=== PATIENT | female | born 1945 | race Hispanic/Latino ===

== ENCOUNTER → 2019-02-28 | Day surgery (SDC) | payer MEDICARE ==
[2019-02-22 10:25] LABS: BASOPHILS % 0.6 % (0.0-1.0); EOSINOPHILS # (AUTO) 0.1 (0.0-0.4); EOSINOPHILS % 1.7 % (0.0-6.0); HEMATOCRIT 38.1 % (34.2-44.1); HEMOGLOBIN 12.5 g/dL (12.0-16.0); LYMPHOCYTES # (AUTO) 1.5 (1.0-3.2); MEAN CORPUSCULAR HGB CONC 32.8 g/dL (31-35); MEAN CORPUSCULAR VOLUME 94.5 fL (81-99); MONOCYTES # (AUTO) 0.6 (0.2-0.8); MONOCYTES % 8.9 % (4.4-11.3); NEUTROPHILS # (AUTO) 4.8 (2.1-6.9); NEUTROPHILS % 67.5 % (38.7-80.0); PLATELET COUNT 252 x10e3/uL (140-360); RED BLOOD COUNT 4.03 x10e6/uL (3.6-5.1); RED CELL DISTRIBUTION WIDTH 12.6 % (11.7-14.4)
[~2019-02-28] MED LIST: CALCIUM600 MG PO; DILTIAZEM 24HR300 M2 PO; FENTANYL CITRATE/PF 100MCG/2 ML INJ ONE; HYOSCYAMINE SULFATE 0.5 MG/ML INJ ONE; LIDOCAINE HCL 2% LOCAL INJ 5 ML SDV VIAL INJ ONE; LISINOPRIL20 MG PO; LOSARTAN-HCTZ1 EAC2 PO; LOVASTATIN10 MG PO; PROPOFOL IV EMULSION 10 MG/ML 50 ML VIAL ONE; VITAMIN D PO
[2019-02-28 10:05] VITALS: BP 114/77
--- NOTE | 2019-02-28 16:30 | Operative Report ---
DATE OF PROCEDURE: 02/28/2019 SURGEON: Brannon Perdomo MD PROCEDURE: Esophagogastroduodenoscopy with biopsies and colonoscopy with polypectomy and biopsies. INDICATIONS FOR EGD: History of melena. INDICATIONS FOR COLONOSCOPY: Surveillance colonoscopy, personal history of colon polyps, intermittent loose stools. MEDICATIONS: The patient was done under MAC. Please see anesthesiologist's note. PROCEDURE IN DETAIL: With the patient in left lateral decubitus position, flexible fiberoptic Olympus gastroscope was introduced into the esophagus under direct visualization without any difficulty. There was some patchy erythema noted in distal esophagus. The scope was then advanced with ease into the stomach. Mucosa overlying the antrum and the body revealed some patchy erythema and low-grade to moderate edema. Biopsies were obtained and sent to stain for H. pylori. A submucosal nodule was noted in the upper body along the lesser curvature and that was biopsied. The pylorus was intubated with ease and the scope was advanced all the way to the second portion of the duodenum. Biopsies were obtained from the proximal second portion and duodenal bulb to rule out sprue. The scope was then withdrawn back into the stomach and retroflexed and mucosa overlying the fundus and the cardia appeared to be within normal limits. The scope was then straightened out. The stomach was decompressed. The scope was subsequently withdrawn. The patient tolerated procedure well. IMPRESSION: 1. Distal esophagitis, mild. 2. Gastritis, biopsied, biopsies sent to stain for H. pylori. 3. Submucosal nodule, upper body, lesser curvature, biopsied. 4. Rule out sprue. PLAN: Follow up histology. Initiate Protonix 40 mg one p.o. q.a.m. a.c. The patient was then turned around. After adequate lubrication of the anal canal, flexible fiberoptic Olympus colonoscope was inserted into the rectum with ease and advanced all the way to the cecum. A minute polyp was noted in the cecum that was removed per snare electrocautery and polypectomy site was hemoclipped. The ileocecal valve was intubated and the scope was advanced into the terminal ileum. Biopsies were obtained. The scope was then withdrawn back into the colon. It was then withdrawn slowly and a minute polyp was hot biopsied from the ascending colon. The transverse appeared to be within normal limits. There were some mild patchy inflammatory changes noted in the descending and the sigmoid colon and random biopsies were obtained. The scope was then retroflexed into the distal rectum and small internal hemorrhoids were noted, none of which was actively bleeding. The scope was then straightened out, it was subsequently withdrawn. The patient tolerated procedure well. IMPRESSION: 1. Cecal polyp, snared and site hemoclipped. 2. Ascending colon polyp, hot biopsied. 3. Mild patchy left-sided colitis. 4. Internal hemorrhoids, none actively bleeding. PLAN: Followup histology. Initiate Bentyl 20 mg one p.o. t.i.d. VSL #3 one p.o. daily. The patient might benefit from a followup colonoscopy in 3 to 5 years. Brannon Perdomo MD [facility] [place] /[id number] cc: Gonzalo Mora MD
== END | disposition home or self-care (01) ==
LOC: OR 06:02
PROVIDERS: ATTEND Internal Medicine Gastroenterology
DX: Z12.11 Encounter for screening for malignant neoplasm of colon (principal); Z86.010 Personal history of colon polyps; K92.1 Melena; K59.00 Constipation, unspecified; R10.9 Unspecified abdominal pain; G47.33 Obstructive sleep apnea (adult) (pediatric); I10 Essential (primary) hypertension; K58.9 Irritable bowel syndrome, unspecified; K20.9 Esophagitis, unspecified; K29.70 Gastritis, unspecified, without bleeding; K31.9 Disease of stomach and duodenum, unspecified; K63.5 Polyp of colon; K64.8 Other hemorrhoids; Z01.810 Encounter for preprocedural cardiovascular examination; Z01.812 Encounter for preprocedural laboratory examination; D12.0 Benign neoplasm of cecum
CPT/HCPCS: 36415; 43239; 45384; 45385; 85025; 88305; 88312; 93005; J1980; J2001; J2704; 45378; 45380

== ENCOUNTER → 2019-06-17 | Outpatient (CLI) | payer MEDICARE ==
[~2019-06-17] MED LIST changes: -FENTANYL CITRATE/PF 100MCG/2 ML INJ ONE; -HYOSCYAMINE SULFATE 0.5 MG/ML INJ ONE; -LIDOCAINE HCL 2% LOCAL INJ 5 ML SDV VIAL INJ ONE; -PROPOFOL IV EMULSION 10 MG/ML 50 ML VIAL ONE
== END ==
LOC: RAD 11:38
PROVIDERS: ATTEND Family Medicine
DX: R60.0 Localized edema (principal)
CPT/HCPCS: 93971

== ENCOUNTER 2020-11-08 09:21 | Inpatient (IN) | payer MEDICARE, OTHER ==
[~2020-11-08] VITALS: Ht 157.5 cm; Wt 80.1 kg
[2020-11-08] VITALS (7 sets, daily range): BP systolic 100–152; BP diastolic 46–71
[2020-11-08 10:10] LABS: HEMATOCRIT 40.5 % (34.2-44.1); HEMOGLOBIN 13.4 g/dL (12.0-16.0); MEAN CORPUSCULAR HEMOGLOBIN 30.7 pg (28-32); MEAN CORPUSCULAR HGB CONC 33.1 g/dL (31-35); MEAN CORPUSCULAR VOLUME 92.7 fL (81-99); PLATELET COUNT 247 x10e3/uL (140-360); RED BLOOD COUNT 4.37 x10e6/uL (3.6-5.1)
[2020-11-08 10:39] LABS: CLARITY,URINE SL CLOUDY (CLEAR); COLOR,URINE YELLOW (YELLOW); KETONES,URINE NEGATIVE (NEGATIVE); LEUKOCYTE ESTERASE ,URINE SMALL (NEGATIVE); NITRITE,URINE NEGATIVE (NEGATIVE); PROTEIN,URINE DIPSTICK 1+ (NEGATIVE); URINE UROBILINOGEN 1 mg/dL (0.2 - 1)
[2020-11-08 10:47] LABS: ALANINE AMINOTRANSFERASE 18 IU/L (0-55); ALBUMIN 2.8 g/dL (3.5-5.0); ALBUMIN/GLOBULIN RATIO 0.7 (0.8-2.0); ALKALINE PHOSPHATASE 70 IU/L (40-150); ANION GAP 13.6 mmol/L (8-16); BLOOD UREA NITROGEN 17 mg/dL (7-26); BUN/CREATININE RATIO 25 (6-25); CALCIUM 8.5 mg/dL (8.4-10.2); CARBON DIOXIDE 26 mmol/L (22-29); CHLORIDE 103 mmol/L (98-107); CREATINE KINASE 24 IU/L (29-168); CREATININE, SERUM 0.69 mg/dL (0.57-1.11); EST GLOMERULAR FILTRATION RATE > 60 ML/MIN (60-); GLUCOSE 111 mg/dL (74-118); POTASSIUM 3.6 mmol/L (3.5-5.1); SODIUM 139 mmol/L (136-145)
[2020-11-08 10:50] LABS: BACTERIA,URINE FEW /HPF; EPITHELIAL CELLS,URINE FEW /LPF; RBC,URINE 0-5 /HPF (0-5)
[2020-11-08] MEDS ORDERED: AZITHROMYCIN 500MG/NS 250 ML 250 ML IV STA (11:22)
[2020-11-08] MEDS ORDERED: CEFTRIAXONE SOD 1 GM/NS 50 ML 50 ML IV ONE (11:30)
[2020-11-08] MEDS ORDERED: LOSARTAN POTASS25 MG PO (12:19)
[2020-11-08] MEDS ORDERED: GABAPENTIN100 MG PO (12:20)
[2020-11-08] MEDS ORDERED: FISH OIL 1,0001 EAC2 PO (12:21)
[2020-11-08 12:38] LABS: LYMPHOCYTES % (MANUAL) 21 % (19-48); MONOCYTES % (MANUAL) 6 % (3.4-9.0); NEUTROPHILS % (MANUAL) 73 % (40-74)
[2020-11-08 12:39] LABS: PLATELET ESTIMATE ADEQUATE; POLYCHROMASIA FEW; RBC MORPHOLOGY COMMENT NORMAL
[2020-11-08] MEDS ORDERED: SODIUM CHLORIDE 0.9% 250ML 250 ML ONE (12:52)
[2020-11-08] MEDS: ACETAMINOPHEN 325 MG TAB PO PRN (13:13)
[2020-11-08] MEDS ORDERED: ONDANSETRON HCL INJ 2MG/ML 2ML 2 MG/ML VIAL IV PRN (13:15)
[2020-11-08] MEDS: PIPER-TAZ 3.375 GM 50 ML IV SCH (16:30)
[2020-11-08] MEDS ORDERED: DEXAMETHASONE SOD PHOS INJ 4 MG/ML VIAL IV SCH (17:00)
[2020-11-08 18:37] LABS: CREATINE KINASE 31 IU/L (29-168)
[2020-11-08] MEDS: ENOXAPARIN SOD INJ 40 MG/0.4 ML SYR SC SCH (21:35)
[2020-11-09] MEDS: PIPER-TAZ 3.375 GM 50 ML IV SCH ×4 (01:15→17:26)
[2020-11-09 02:10] LABS: CREATINE KINASE MB 0.8 ng/mL (0-5.0)
[2020-11-09 04:54] VITALS: BP 110/46
[2020-11-09 06:27] LABS: BASOPHILS % 0.2 % (0.0-1.0); HEMATOCRIT 39.4 % (34.2-44.1); HEMOGLOBIN 13.1 g/dL (12.0-16.0); LYMPHOCYTES # (AUTO) 0.7 (1.0-3.2); LYMPHOCYTES % 4.3 % (18.0-39.1); MEAN CORPUSCULAR HEMOGLOBIN 31.3 pg (28-32); MEAN CORPUSCULAR HGB CONC 33.2 g/dL (31-35); MEAN CORPUSCULAR VOLUME 94.3 fL (81-99); MONOCYTES # (AUTO) 0.6 (0.2-0.8); MONOCYTES % 3.5 % (4.4-11.3); NEUTROPHILS # (AUTO) 14.2 (2.1-6.9); PLATELET COUNT 231 x10e3/uL (140-360); RED BLOOD COUNT 4.18 x10e6/uL (3.6-5.1); RED CELL DISTRIBUTION WIDTH 13.1 % (11.7-14.4)
[2020-11-09] MEDS: ACETAMINOPHEN 325 MG TAB PO PRN ×2 (06:27→16:45)
[2020-11-09 06:59] LABS: ALANINE AMINOTRANSFERASE 18 IU/L (0-55); ALBUMIN 2.4 g/dL (3.5-5.0); ALBUMIN/GLOBULIN RATIO 0.6 (0.8-2.0); ALKALINE PHOSPHATASE 69 IU/L (40-150); ANION GAP 14.2 mmol/L (8-16); BLOOD UREA NITROGEN 16 mg/dL (7-26); BUN/CREATININE RATIO 24 (6-25); CALCIUM 8.2 mg/dL (8.4-10.2); CARBON DIOXIDE 25 mmol/L (22-29); CHLORIDE 104 mmol/L (98-107); CREATININE, SERUM 0.67 mg/dL (0.57-1.11); EST GLOMERULAR FILTRATION RATE > 60 ML/MIN (60-); GLUCOSE 110 mg/dL (74-118); POTASSIUM 4.2 mmol/L (3.5-5.1); SODIUM 139 mmol/L (136-145)
[2020-11-09 07:56] LABS: LYMPHOCYTES % (MANUAL) 2 % (19-48); MONOCYTES % (MANUAL) 1 % (3.4-9.0); NEUTROPHILS % (MANUAL) 96 % (40-74); PLATELET ESTIMATE ADEQUATE; PLATELET MORPHOLOGY COMMENT NORMAL; RBC MORPHOLOGY COMMENT NORMAL
[2020-11-09 09:00] VITALS: BP 121/58
[2020-11-09] MEDS: ENOXAPARIN SOD INJ 40 MG/0.4 ML SYR SC SCH ×2 (09:20→21:07)
[2020-11-09] MEDS: DEXAMETHASONE SOD PHOS INJ 4 MG/ML VIAL IV SCH (09:20)
[2020-11-09] MEDS ORDERED: SODIUM CHLORIDE 0.9% 250ML 250 ML ONE (11:39)
[2020-11-09] MEDS: AZITHROMYCIN 250 MG TAB PO SCH (11:43)
[2020-11-09 20:00] VITALS: BP 129/67
[2020-11-09 21:28] VITALS: BP 129/67
[2020-11-09 23:30] VITALS: BP 131/59
[2020-11-10] VITALS (9 sets, daily range): BP systolic 120–141; BP diastolic 58–80
[2020-11-10] MEDS: ACETAMINOPHEN 325 MG TAB PO PRN ×2 (02:11→10:20)
[2020-11-10] MEDS: PIPER-TAZ 3.375 GM 50 ML IV SCH ×5 (05:03→23:44)
[2020-11-10] MEDS: DEXAMETHASONE SOD PHOS INJ 4 MG/ML VIAL IV SCH (08:28)
[2020-11-10] MEDS: AZITHROMYCIN 250 MG TAB PO SCH (08:28)
[2020-11-10] MEDS: ENOXAPARIN SOD INJ 40 MG/0.4 ML SYR SC SCH ×2 (08:28→20:00)
[2020-11-11] VITALS (9 sets, daily range): BP systolic 113–135; BP diastolic 53–67
[2020-11-11] MEDS: PIPER-TAZ 3.375 GM 50 ML IV SCH ×3 (05:06→17:10)
[2020-11-11 06:28] LABS: BASOPHILS % 0.3 % (0.0-1.0); HEMATOCRIT 38.5 % (34.2-44.1); HEMOGLOBIN 12.6 g/dL (12.0-16.0); LYMPHOCYTES # (AUTO) 1.2 (1.0-3.2); LYMPHOCYTES % 11.5 % (18.0-39.1); MEAN CORPUSCULAR HEMOGLOBIN 30.4 pg (28-32); MEAN CORPUSCULAR HGB CONC 32.7 g/dL (31-35); MEAN CORPUSCULAR VOLUME 92.8 fL (81-99); MONOCYTES # (AUTO) 0.8 (0.2-0.8); MONOCYTES % 7.5 % (4.4-11.3); NEUTROPHILS # (AUTO) 8.4 (2.1-6.9); NEUTROPHILS % 78.4 % (38.7-80.0); PLATELET COUNT 319 x10e3/uL (140-360); RED BLOOD COUNT 4.15 x10e6/uL (3.6-5.1); RED CELL DISTRIBUTION WIDTH 13.2 % (11.7-14.4)
[2020-11-11 07:07] LABS: ANION GAP 14.1 mmol/L (8-16); BLOOD UREA NITROGEN 23 mg/dL (7-26); BUN/CREATININE RATIO 33 (6-25); CALCIUM 8.6 mg/dL (8.4-10.2); CARBON DIOXIDE 24 mmol/L (22-29); CHLORIDE 107 mmol/L (98-107); EST GLOMERULAR FILTRATION RATE > 60 ML/MIN (60-); GLUCOSE 104 mg/dL (74-118); POTASSIUM 4.1 mmol/L (3.5-5.1); SODIUM 141 mmol/L (136-145)
[2020-11-11] MEDS: AZITHROMYCIN 250 MG TAB PO SCH (08:42)
[2020-11-11] MEDS: DEXAMETHASONE SOD PHOS INJ 4 MG/ML VIAL IV SCH (08:42)
[2020-11-11] MEDS: ENOXAPARIN SOD INJ 40 MG/0.4 ML SYR SC SCH ×2 (08:42→20:54)
[2020-11-11] MEDS: ALBUTEROL SULFATE HFA 8GM INHALATION AEROSOL INH SCH (13:00)
[2020-11-12] VITALS (8 sets, daily range): BP systolic 117–142; BP diastolic 57–74
[2020-11-12] MEDS: PIPER-TAZ 3.375 GM 50 ML IV SCH ×5 (05:19→23:55)
[2020-11-12] MEDS: DEXAMETHASONE SOD PHOS INJ 4 MG/ML VIAL IV SCH (08:18)
[2020-11-12] MEDS: ENOXAPARIN SOD INJ 40 MG/0.4 ML SYR SC SCH ×2 (08:18→20:05)
[2020-11-12] MEDS: AZITHROMYCIN 250 MG TAB PO SCH (08:18)
[2020-11-13] MEDS: CEPACOL SORE THROAT LOZENGES PO PRN (01:19)
[2020-11-13 04:00] VITALS: BP 129/65
[2020-11-13 05:31] LABS: BASOPHILS % 0.2 % (0.0-1.0); EOSINOPHILS # (AUTO) 0.1 (0.0-0.4); EOSINOPHILS % 0.4 % (0.0-6.0); HEMATOCRIT 38.6 % (34.2-44.1); HEMOGLOBIN 12.5 g/dL (12.0-16.0); LYMPHOCYTES # (AUTO) 1.9 (1.0-3.2); LYMPHOCYTES % 13.8 % (18.0-39.1); MEAN CORPUSCULAR HEMOGLOBIN 30.6 pg (28-32); MEAN CORPUSCULAR HGB CONC 32.4 g/dL (31-35); MEAN CORPUSCULAR VOLUME 94.6 fL (81-99); MONOCYTES # (AUTO) 0.8 (0.2-0.8); MONOCYTES % 5.9 % (4.4-11.3); NEUTROPHILS # (AUTO) 10.2 (2.1-6.9); NEUTROPHILS % 76.1 % (38.7-80.0); PLATELET COUNT 273 x10e3/uL (140-360); RED BLOOD COUNT 4.08 x10e6/uL (3.6-5.1); RED CELL DISTRIBUTION WIDTH 12.6 % (11.7-14.4)
[2020-11-13] MEDS: ACETAMINOPHEN 325 MG TAB PO PRN (05:48)
[2020-11-13 05:58] LABS: ALANINE AMINOTRANSFERASE 19 IU/L (0-55); ALBUMIN 2.2 g/dL (3.5-5.0); ALBUMIN/GLOBULIN RATIO 0.6 (0.8-2.0); ALKALINE PHOSPHATASE 52 IU/L (40-150); ANION GAP 11.8 mmol/L (8-16); BLOOD UREA NITROGEN 18 mg/dL (7-26); BUN/CREATININE RATIO 28 (6-25); CALCIUM 8.3 mg/dL (8.4-10.2); CARBON DIOXIDE 26 mmol/L (22-29); CHLORIDE 105 mmol/L (98-107); CREATININE, SERUM 0.64 mg/dL (0.57-1.11); EST GLOMERULAR FILTRATION RATE > 60 ML/MIN (60-); GLUCOSE 92 mg/dL (74-118); POTASSIUM 3.8 mmol/L (3.5-5.1); SODIUM 139 mmol/L (136-145)
[2020-11-13] MEDS: PIPER-TAZ 3.375 GM 50 ML IV SCH ×2 (06:16→11:13)
[2020-11-13] MEDS: ALBUTEROL SULFATE HFA 8GM INHALATION AEROSOL INH SCH ×3 (07:00→19:53)
[2020-11-13] MEDS: ENOXAPARIN SOD INJ 40 MG/0.4 ML SYR SC SCH ×2 (08:12→19:52)
[2020-11-13] MEDS: AZITHROMYCIN 250 MG TAB PO SCH (08:12)
[2020-11-13] MEDS: DEXAMETHASONE SOD PHOS INJ 4 MG/ML VIAL IV SCH (08:12)
[2020-11-13 08:48] VITALS: BP 120/54
[2020-11-13 09:33] VITALS: BP 120/54
[2020-11-13 12:43] VITALS: BP 116/65
[2020-11-13 17:02] VITALS: BP 125/63
[2020-11-13 20:00] VITALS: BP 116/57
[2020-11-14] VITALS (8 sets, daily range): BP systolic 103–136; BP diastolic 42–67
[2020-11-14] MEDS: ALBUTEROL SULFATE HFA 8GM INHALATION AEROSOL INH SCH ×4 (01:02→17:39)
[2020-11-14] MEDS ORDERED: SODIUM CHLORIDE 0.9% 250ML 250 ML ONE (01:12)
[2020-11-14] MEDS: CEPACOL SORE THROAT LOZENGES PO PRN (09:25)
[2020-11-14] MEDS: DEXAMETHASONE SOD PHOS INJ 4 MG/ML VIAL IV SCH (09:25)
[2020-11-14] MEDS: ENOXAPARIN SOD INJ 40 MG/0.4 ML SYR SC SCH ×2 (09:37→20:41)
[2020-11-14] MEDS: ACETAMINOPHEN 325 MG TAB PO PRN (09:37)
[2020-11-15] VITALS (8 sets, daily range): BP systolic 101–127; BP diastolic 50–87
[2020-11-15] MEDS: ALBUTEROL SULFATE HFA 8GM INHALATION AEROSOL INH SCH ×4 (00:50→19:00)
[2020-11-15] MEDS: ENOXAPARIN SOD INJ 40 MG/0.4 ML SYR SC SCH (09:05)
[2020-11-15] MEDS: DEXAMETHASONE SOD PHOS INJ 4 MG/ML VIAL IV SCH (09:05)
[2020-11-15] MEDS: ACETAMINOPHEN 325 MG TAB PO PRN (23:43)
[2020-11-16] VITALS (8 sets, daily range): BP systolic 116–123; BP diastolic 51–65
[2020-11-16] MEDS: ALBUTEROL SULFATE HFA 8GM INHALATION AEROSOL INH SCH ×4 (00:17→19:08)
[2020-11-16 04:48] LABS: BASOPHILS % 0.2 % (0.0-1.0); EOSINOPHILS # (AUTO) 0.3 (0.0-0.4); EOSINOPHILS % 2.3 % (0.0-6.0); HEMATOCRIT 33.6 % (34.2-44.1); HEMOGLOBIN 11.1 g/dL (12.0-16.0); LYMPHOCYTES # (AUTO) 1.5 (1.0-3.2); LYMPHOCYTES % 11.3 % (18.0-39.1); MEAN CORPUSCULAR HEMOGLOBIN 30.5 pg (28-32); MEAN CORPUSCULAR VOLUME 92.3 fL (81-99); MONOCYTES # (AUTO) 0.6 (0.2-0.8); MONOCYTES % 4.3 % (4.4-11.3); NEUTROPHILS # (AUTO) 10.3 (2.1-6.9); NEUTROPHILS % 79.7 % (38.7-80.0); PLATELET COUNT 255 x10e3/uL (140-360); RED BLOOD COUNT 3.64 x10e6/uL (3.6-5.1); RED CELL DISTRIBUTION WIDTH 12.7 % (11.7-14.4)
[2020-11-16 05:05] LABS: ANION GAP 11.7 mmol/L (8-16); BLOOD UREA NITROGEN 17 mg/dL (7-26); BUN/CREATININE RATIO 32 (6-25); CARBON DIOXIDE 24 mmol/L (22-29); CHLORIDE 107 mmol/L (98-107); CREATININE, SERUM 0.53 mg/dL (0.57-1.11); EST GLOMERULAR FILTRATION RATE > 60 ML/MIN (60-); GLUCOSE 89 mg/dL (74-118); POTASSIUM 3.7 mmol/L (3.5-5.1); SODIUM 139 mmol/L (136-145)
[2020-11-16] MEDS: DEXAMETHASONE SOD PHOS INJ 4 MG/ML VIAL IV SCH (08:37)
[2020-11-17] VITALS (8 sets, daily range): BP systolic 90–121; BP diastolic 50–73
[2020-11-17] MEDS: ALBUTEROL SULFATE HFA 8GM INHALATION AEROSOL INH SCH ×4 (00:44→19:37)
[2020-11-17] MEDS: DEXAMETHASONE SOD PHOS INJ 4 MG/ML VIAL IV SCH (11:55)
[2020-11-18] VITALS (8 sets, daily range): BP systolic 107–131; BP diastolic 51–65
[2020-11-18] MEDS: ALBUTEROL SULFATE HFA 8GM INHALATION AEROSOL INH SCH ×4 (01:00→20:07)
[2020-11-18] MEDS ORDERED: ENOXAPARIN SOD INJ 40 MG/0.4 ML SYR SC STA (10:44)
[2020-11-18] MEDS: ACETAMINOPHEN 325 MG TAB PO PRN (20:45)
[2020-11-19] VITALS (8 sets, daily range): BP systolic 90–116; BP diastolic 38–65
[2020-11-19] MEDS: ALBUTEROL SULFATE HFA 8GM INHALATION AEROSOL INH SCH ×4 (01:00→19:00)
[2020-11-19] MEDS: ACETAMINOPHEN 325 MG TAB PO PRN (16:19)
[2020-11-20] VITALS: BP 118/78
[2020-11-20] MEDS: ALBUTEROL SULFATE HFA 8GM INHALATION AEROSOL INH SCH ×3 (01:00→13:06)
[2020-11-20 04:49] LABS: BASOPHILS % 0.2 % (0.0-1.0); EOSINOPHILS # (AUTO) 0.3 (0.0-0.4); EOSINOPHILS % 2.9 % (0.0-6.0); HEMOGLOBIN 11.9 g/dL (12.0-16.0); LYMPHOCYTES # (AUTO) 1.1 (1.0-3.2); LYMPHOCYTES % 11.5 % (18.0-39.1); MEAN CORPUSCULAR HEMOGLOBIN 30.7 pg (28-32); MEAN CORPUSCULAR HGB CONC 32.2 g/dL (31-35); MEAN CORPUSCULAR VOLUME 95.4 fL (81-99); MONOCYTES # (AUTO) 0.6 (0.2-0.8); MONOCYTES % 6.2 % (4.4-11.3); NEUTROPHILS # (AUTO) 7.6 (2.1-6.9); NEUTROPHILS % 78.4 % (38.7-80.0); PLATELET COUNT 228 x10e3/uL (140-360); RED BLOOD COUNT 3.88 x10e6/uL (3.6-5.1); RED CELL DISTRIBUTION WIDTH 12.7 % (11.7-14.4)
[2020-11-20 05:06] LABS: ANION GAP 12.9 mmol/L (8-16); BLOOD UREA NITROGEN 14 mg/dL (7-26); BUN/CREATININE RATIO 25 (6-25); CALCIUM 8.3 mg/dL (8.4-10.2); CARBON DIOXIDE 24 mmol/L (22-29); CHLORIDE 103 mmol/L (98-107); CREATININE, SERUM 0.57 mg/dL (0.57-1.11); EST GLOMERULAR FILTRATION RATE > 60 ML/MIN (60-); GLUCOSE 95 mg/dL (74-118); POTASSIUM 3.9 mmol/L (3.5-5.1); SODIUM 136 mmol/L (136-145)
[2020-11-20 08:00] VITALS: BP 112/50
[2020-11-20 13:13] VITALS: BP 110/77
[2020-11-20 16:01] VITALS: BP 114/57
[2020-11-20] MEDS: ACETAMINOPHEN 325 MG TAB PO PRN (16:05)
== END 2020-11-20 17:09 | disposition home health service (06) | DRG 177 ==
LOC: ER 09:32 → ERHOLD 11:47 → MED/SURG2 12:05 → IMCU 11-09 06:41
PROVIDERS: ADMIT Family Medicine; ATTEND Family Medicine
DX: U07.1 COVID-19 (principal); J12.82 Pneumonia due to coronavirus disease 2019; J96.01 Acute respiratory failure with hypoxia; Z88.1 Allergy status to other antibiotic agents; Z88.8 Allergy status to other drugs, medicaments and biological substances; I10 Essential (primary) hypertension; E66.9 Obesity, unspecified; Z68.32 Body mass index [BMI] 32.0-32.9, adult
CPT/HCPCS: 36415; 71045; 80048; 80053; 81001; 82550; 82553; 84484; 85007; 85025; 85027; 87086; 96361; 97139; 99251; 99284; J0456; J0696; J1100; J1650; J2405; J2543; J7050; U0002

== ENCOUNTER 2020-11-24 19:03 | Inpatient (IN) | payer MEDICARE ==
[~2020-11-24] VITALS: Ht 157.5 cm; Wt 79.8 kg
[~2020-11-24 19:03] MED LIST changes: +FISH OIL 1,0001 EAC2 PO; +GABAPENTIN100 MG PO; +LOSARTAN POTASS25 MG PO
[2020-11-24 20:11] LABS: BASOPHILS % 0.2 % (0.0-1.0); EOSINOPHILS # (AUTO) 0.3 (0.0-0.4); EOSINOPHILS % 2.2 % (0.0-6.0); HEMATOCRIT 36.8 % (34.2-44.1); HEMOGLOBIN 11.9 g/dL (12.0-16.0); LYMPHOCYTES # (AUTO) 1.4 (1.0-3.2); LYMPHOCYTES % 11.6 % (18.0-39.1); MEAN CORPUSCULAR HEMOGLOBIN 30.9 pg (28-32); MEAN CORPUSCULAR HGB CONC 32.3 g/dL (31-35); MEAN CORPUSCULAR VOLUME 95.6 fL (81-99); MONOCYTES # (AUTO) 0.9 (0.2-0.8); MONOCYTES % 7.8 % (4.4-11.3); NEUTROPHILS # (AUTO) 9.3 (2.1-6.9); NEUTROPHILS % 77.6 % (38.7-80.0); PLATELET COUNT 240 x10e3/uL (140-360); RED BLOOD COUNT 3.85 x10e6/uL (3.6-5.1); RED CELL DISTRIBUTION WIDTH 13.2 % (11.7-14.4)
[2020-11-24 20:22] LABS: INR 1.02
[2020-11-24 20:23] LABS: PARTIAL THROMBOPLASTIN TIME 42.8 seconds (23.8-35.5)
[2020-11-24 20:32] LABS: ALANINE AMINOTRANSFERASE 21 IU/L (0-55); ALBUMIN 2.7 g/dL (3.5-5.0); ALBUMIN/GLOBULIN RATIO 0.6 (0.8-2.0); ALKALINE PHOSPHATASE 80 IU/L (40-150); BLOOD UREA NITROGEN 14 mg/dL (7-26); BUN/CREATININE RATIO 21 (6-25); CARBON DIOXIDE 24 mmol/L (22-29); CHLORIDE 106 mmol/L (98-107); CREATINE KINASE 20 IU/L (29-168); CREATININE, SERUM 0.66 mg/dL (0.57-1.11); EST GLOMERULAR FILTRATION RATE > 60 ML/MIN (60-); GLUCOSE 114 mg/dL (74-118); SODIUM 142 mmol/L (136-145)
[2020-11-24 21:35] VITALS: BP 113/56
[2020-11-24 21:40] VITALS: BP 113/56
[2020-11-25] VITALS (8 sets, daily range): BP systolic 91–116; BP diastolic 40–65
[2020-11-25] MEDS ORDERED: CEFTRIAXONE SOD 1 GM/NS 50 ML 50 ML IV SCH (04:30)
[2020-11-25] MEDS ORDERED: AZITHROMYCIN 500MG/NS 250 ML 250 ML IV SCH (04:30)
[2020-11-25] MEDS ORDERED: SODIUM CHLORIDE 0.9% 250ML 250 ML ONE (05:20)
[2020-11-25] MEDS: ACETAMINOPHEN 325 MG TAB PO PRN (06:14)
[2020-11-25 06:16] LABS: BASOPHILS % 0.3 % (0.0-1.0); EOSINOPHILS # (AUTO) 0.2 (0.0-0.4); HEMATOCRIT 33.2 % (34.2-44.1); HEMOGLOBIN 11.1 g/dL (12.0-16.0); LYMPHOCYTES % 9.1 % (18.0-39.1); MEAN CORPUSCULAR HEMOGLOBIN 31.8 pg (28-32); MEAN CORPUSCULAR HGB CONC 33.4 g/dL (31-35); MEAN CORPUSCULAR VOLUME 95.1 fL (81-99); MONOCYTES % 8.3 % (4.4-11.3); NEUTROPHILS # (AUTO) 9.1 (2.1-6.9); NEUTROPHILS % 79.8 % (38.7-80.0); PLATELET COUNT 214 x10e3/uL (140-360); RED BLOOD COUNT 3.49 x10e6/uL (3.6-5.1); RED CELL DISTRIBUTION WIDTH 13.3 % (11.7-14.4)
[2020-11-25 06:48] LABS: CREATINE KINASE MB 0.7 ng/mL (0-5.0)
[2020-11-25 07:20] LABS: ALANINE AMINOTRANSFERASE 18 IU/L (0-55); ALBUMIN 2.4 g/dL (3.5-5.0); ALBUMIN/GLOBULIN RATIO 0.6 (0.8-2.0); ALKALINE PHOSPHATASE 67 IU/L (40-150); ANION GAP 13.2 mmol/L (8-16); BLOOD UREA NITROGEN 11 mg/dL (7-26); BUN/CREATININE RATIO 19 (6-25); CALCIUM 8.6 mg/dL (8.4-10.2); CARBON DIOXIDE 23 mmol/L (22-29); CHLORIDE 105 mmol/L (98-107); CREATININE, SERUM 0.58 mg/dL (0.57-1.11); EST GLOMERULAR FILTRATION RATE > 60 ML/MIN (60-); GLUCOSE 107 mg/dL (74-118); POTASSIUM 4.2 mmol/L (3.5-5.1); SODIUM 137 mmol/L (136-145)
[2020-11-25] MEDS: DILTIAZEM HCL ER 120 MG CAP PO SCH (08:50)
[2020-11-25] MEDS: ENOXAPARIN INJ 80 MG/0.8 ML SYR SC SCH ×2 (08:51→20:29)
[2020-11-25] MEDS: LOSARTAN POTASSIUM 25 MG TAB PO SCH (08:51)
[2020-11-25] MEDS: GABAPENTIN 100 MG CAP PO SCH ×3 (08:51→20:29)
[2020-11-25] MEDS ORDERED: DEXAMETHASONE SOD PHOS 10 MG/1 ML VIAL IV SCH (09:00)
[2020-11-25 14:45] LABS: CREATINE KINASE MB 0.8 ng/mL (0-5.0)
[2020-11-25] MEDS ORDERED: IOPAMIDOL 370 MG/ML 200 ML INFUS..BTL INJ ONE (14:54)
[2020-11-25] MEDS ORDERED: SODIUM CHLORIDE 0.9% 50ML 50 ML ONE (14:54)
[2020-11-25] MEDS: PIPER-TAZ 3.375 GM 50 ML IV SCH (16:19)
[2020-11-25] MEDS: ATORVASTATIN 10 MG TAB PO SCH (20:29)
[2020-11-25] MEDS: METHYLPREDNISOLONE SOD SUCC 40 MG/ML VIAL 1ML IV SCH (20:29)
[2020-11-26] VITALS (7 sets, daily range): BP systolic 111–128; BP diastolic 51–77
[2020-11-26] MEDS: PIPER-TAZ 3.375 GM 50 ML IV SCH ×5 (05:25→23:54)
[2020-11-26] MEDS: ENOXAPARIN INJ 80 MG/0.8 ML SYR SC SCH ×2 (08:45→21:19)
[2020-11-26] MEDS: METHYLPREDNISOLONE SOD SUCC 40 MG/ML VIAL 1ML IV SCH ×2 (08:46→21:19)
[2020-11-26] MEDS: DILTIAZEM HCL ER 120 MG CAP PO SCH (08:47)
[2020-11-26] MEDS: LOSARTAN POTASSIUM 25 MG TAB PO SCH (08:47)
[2020-11-26] MEDS: GABAPENTIN 100 MG CAP PO SCH ×3 (08:48→21:19)
[2020-11-26] MEDS: ATORVASTATIN 10 MG TAB PO SCH (21:19)
[2020-11-27] VITALS (9 sets, daily range): BP systolic 99–130; BP diastolic 46–74
[2020-11-27 05:24] LABS: BASOPHILS % 0.1 % (0.0-1.0); HEMATOCRIT 31.3 % (34.2-44.1); LYMPHOCYTES # (AUTO) 0.7 (1.0-3.2); LYMPHOCYTES % 5.2 % (18.0-39.1); MEAN CORPUSCULAR HEMOGLOBIN 30.7 pg (28-32); MEAN CORPUSCULAR HGB CONC 31.9 g/dL (31-35); MONOCYTES # (AUTO) 0.3 (0.2-0.8); NEUTROPHILS % 91.9 % (38.7-80.0); PLATELET COUNT 221 x10e3/uL (140-360); RED BLOOD COUNT 3.26 x10e6/uL (3.6-5.1); RED CELL DISTRIBUTION WIDTH 13.4 % (11.7-14.4)
[2020-11-27 05:51] LABS: ALANINE AMINOTRANSFERASE 18 IU/L (0-55); ALBUMIN 2.2 g/dL (3.5-5.0); ALBUMIN/GLOBULIN RATIO 0.6 (0.8-2.0); ALKALINE PHOSPHATASE 64 IU/L (40-150); ANION GAP 13.2 mmol/L (8-16); BLOOD UREA NITROGEN 22 mg/dL (7-26); BUN/CREATININE RATIO 33 (6-25); CALCIUM 8.6 mg/dL (8.4-10.2); CARBON DIOXIDE 25 mmol/L (22-29); CHLORIDE 107 mmol/L (98-107); CREATININE, SERUM 0.66 mg/dL (0.57-1.11); EST GLOMERULAR FILTRATION RATE > 60 ML/MIN (60-); GLUCOSE 145 mg/dL (74-118); POTASSIUM 4.2 mmol/L (3.5-5.1); SODIUM 141 mmol/L (136-145)
[2020-11-27] MEDS: PIPER-TAZ 3.375 GM 50 ML IV SCH ×4 (06:12→23:50)
[2020-11-27 07:20] LABS: LYMPHOCYTES % (MANUAL) 4 % (19-48); MONOCYTES % (MANUAL) 3 % (3.4-9.0); NEUTROPHILS % (MANUAL) 93 % (40-74); PLATELET ESTIMATE ADEQUATE; PLATELET MORPHOLOGY COMMENT NORMAL; RBC MORPHOLOGY COMMENT NORMAL
[2020-11-27] MEDS: METHYLPREDNISOLONE SOD SUCC 40 MG/ML VIAL 1ML IV SCH ×2 (08:49→21:05)
[2020-11-27] MEDS: LOSARTAN POTASSIUM 25 MG TAB PO SCH (08:50)
[2020-11-27] MEDS: DILTIAZEM HCL ER 120 MG CAP PO SCH (08:50)
[2020-11-27] MEDS: ENOXAPARIN INJ 80 MG/0.8 ML SYR SC SCH ×2 (08:51→21:05)
[2020-11-27] MEDS: GABAPENTIN 100 MG CAP PO SCH ×3 (08:51→21:05)
[2020-11-27] MEDS: ACETAMINOPHEN 325 MG TAB PO PRN (15:33)
[2020-11-27] MEDS ORDERED: ALPRAZOLAM 0.25 MG TAB PO ONE (20:00)
[2020-11-27] MEDS: ATORVASTATIN 10 MG TAB PO SCH (21:05)
[2020-11-28 04:42] VITALS: BP 107/58
[2020-11-28] MEDS: PIPER-TAZ 3.375 GM 50 ML IV SCH ×4 (05:48→23:15)
[2020-11-28 09:00] VITALS: BP 114/47
[2020-11-28] MEDS: METHYLPREDNISOLONE SOD SUCC 40 MG/ML VIAL 1ML IV SCH ×2 (09:07→20:50)
[2020-11-28] MEDS: GABAPENTIN 100 MG CAP PO SCH ×3 (09:10→20:50)
[2020-11-28] MEDS: DILTIAZEM HCL ER 120 MG CAP PO SCH (09:10)
[2020-11-28] MEDS: ENOXAPARIN INJ 80 MG/0.8 ML SYR SC SCH ×2 (09:10→20:50)
[2020-11-28] MEDS: LOSARTAN POTASSIUM 25 MG TAB PO SCH (09:10)
[2020-11-28 09:13] VITALS: BP 114/47
[2020-11-28 12:30] VITALS: BP 119/56
[2020-11-28 16:51] VITALS: BP 104/57
[2020-11-28 20:00] VITALS: BP 117/59
[2020-11-28] MEDS: ATORVASTATIN 10 MG TAB PO SCH (20:50)
[2020-11-29] VITALS (7 sets, daily range): BP systolic 113–128; BP diastolic 46–80
[2020-11-29] MEDS ORDERED: PIPER-TAZ 3.375 GM 50 ML IV SCH (06:00)
[2020-11-29] MEDS: METHYLPREDNISOLONE SOD SUCC 40 MG/ML VIAL 1ML IV SCH ×2 (08:25→20:32)
[2020-11-29] MEDS: PIPER-TAZ 3.375 GM 50 ML IV SCH ×3 (08:25→20:32)
[2020-11-29] MEDS: DILTIAZEM HCL ER 120 MG CAP PO SCH (08:26)
[2020-11-29] MEDS: LOSARTAN POTASSIUM 25 MG TAB PO SCH (08:26)
[2020-11-29] MEDS: GABAPENTIN 100 MG CAP PO SCH ×3 (08:27→20:32)
[2020-11-29] MEDS: ENOXAPARIN INJ 80 MG/0.8 ML SYR SC SCH ×2 (08:27→20:32)
[2020-11-29] MEDS: ATORVASTATIN 10 MG TAB PO SCH (20:32)
[2020-11-30] VITALS (8 sets, daily range): BP systolic 104–124; BP diastolic 50–63
[2020-11-30] MEDS: PIPER-TAZ 3.375 GM 50 ML IV SCH ×4 (04:34→20:29)
[2020-11-30 05:03] LABS: BASOPHILS % 0.1 % (0.0-1.0); HEMATOCRIT 32.9 % (34.2-44.1); HEMOGLOBIN 10.8 g/dL (12.0-16.0); LYMPHOCYTES # (AUTO) 0.5 (1.0-3.2); LYMPHOCYTES % 6.6 % (18.0-39.1); MEAN CORPUSCULAR HEMOGLOBIN 31.4 pg (28-32); MEAN CORPUSCULAR HGB CONC 32.8 g/dL (31-35); MEAN CORPUSCULAR VOLUME 95.6 fL (81-99); MONOCYTES # (AUTO) 0.2 (0.2-0.8); MONOCYTES % 2.2 % (4.4-11.3); NEUTROPHILS # (AUTO) 6.6 (2.1-6.9); NEUTROPHILS % 90.6 % (38.7-80.0); PLATELET COUNT 260 x10e3/uL (140-360); RED BLOOD COUNT 3.44 x10e6/uL (3.6-5.1); RED CELL DISTRIBUTION WIDTH 12.7 % (11.7-14.4)
[2020-11-30 05:27] LABS: ALANINE AMINOTRANSFERASE 22 IU/L (0-55); ALBUMIN 2.2 g/dL (3.5-5.0); ALBUMIN/GLOBULIN RATIO 0.6 (0.8-2.0); ALKALINE PHOSPHATASE 61 IU/L (40-150); ANION GAP 14.1 mmol/L (8-16); BLOOD UREA NITROGEN 19 mg/dL (7-26); BUN/CREATININE RATIO 31 (6-25); CALCIUM 7.9 mg/dL (8.4-10.2); CARBON DIOXIDE 26 mmol/L (22-29); CHLORIDE 106 mmol/L (98-107); CREATININE, SERUM 0.61 mg/dL (0.57-1.11); EST GLOMERULAR FILTRATION RATE > 60 ML/MIN (60-); GLUCOSE 144 mg/dL (74-118); POTASSIUM 4.1 mmol/L (3.5-5.1); SODIUM 142 mmol/L (136-145)
[2020-11-30] MEDS: METHYLPREDNISOLONE SOD SUCC 40 MG/ML VIAL 1ML IV SCH ×2 (08:08→20:29)
[2020-11-30] MEDS: LOSARTAN POTASSIUM 25 MG TAB PO SCH (08:09)
[2020-11-30] MEDS: GABAPENTIN 100 MG CAP PO SCH ×3 (08:09→20:29)
[2020-11-30] MEDS: ENOXAPARIN INJ 80 MG/0.8 ML SYR SC SCH ×2 (08:09→20:29)
[2020-11-30] MEDS: DILTIAZEM HCL ER 120 MG CAP PO SCH (08:09)
[2020-11-30] MEDS: ATORVASTATIN 10 MG TAB PO SCH (20:29)
[2020-12-01] VITALS (8 sets, daily range): BP systolic 105–128; BP diastolic 50–64
[2020-12-01] MEDS: PIPER-TAZ 3.375 GM 50 ML IV SCH ×4 (03:00→20:45)
[2020-12-01] MEDS: METHYLPREDNISOLONE SOD SUCC 40 MG/ML VIAL 1ML IV SCH ×2 (08:54→20:45)
[2020-12-01] MEDS: ENOXAPARIN INJ 80 MG/0.8 ML SYR SC SCH ×2 (08:56→20:45)
[2020-12-01] MEDS: DILTIAZEM HCL ER 120 MG CAP PO SCH (08:56)
[2020-12-01] MEDS: GABAPENTIN 100 MG CAP PO SCH ×3 (08:56→20:45)
[2020-12-01] MEDS: LOSARTAN POTASSIUM 25 MG TAB PO SCH (08:56)
[2020-12-01] MEDS: ATORVASTATIN 10 MG TAB PO SCH (20:45)
[2020-12-02] VITALS (8 sets, daily range): BP systolic 108–124; BP diastolic 56–65
[2020-12-02] MEDS: PIPER-TAZ 3.375 GM 50 ML IV SCH ×4 (03:31→20:43)
[2020-12-02] MEDS ORDERED: SODIUM CHLORIDE 0.9% 250ML 250 ML ONE (06:13)
[2020-12-02 06:14] LABS: BASOPHILS % 0.1 % (0.0-1.0); HEMATOCRIT 32.9 % (34.2-44.1); HEMOGLOBIN 10.7 g/dL (12.0-16.0); LYMPHOCYTES # (AUTO) 0.6 (1.0-3.2); LYMPHOCYTES % 6.1 % (18.0-39.1); MEAN CORPUSCULAR HEMOGLOBIN 30.7 pg (28-32); MEAN CORPUSCULAR HGB CONC 32.5 g/dL (31-35); MEAN CORPUSCULAR VOLUME 94.3 fL (81-99); MONOCYTES # (AUTO) 0.4 (0.2-0.8); MONOCYTES % 4.2 % (4.4-11.3); NEUTROPHILS # (AUTO) 8.1 (2.1-6.9); NEUTROPHILS % 88.2 % (38.7-80.0); PLATELET COUNT 276 x10e3/uL (140-360); RED BLOOD COUNT 3.49 x10e6/uL (3.6-5.1); RED CELL DISTRIBUTION WIDTH 12.9 % (11.7-14.4)
[2020-12-02 06:52] LABS: ANION GAP 10.8 mmol/L (8-16); BLOOD UREA NITROGEN 17 mg/dL (7-26); BUN/CREATININE RATIO 29 (6-25); CALCIUM 7.8 mg/dL (8.4-10.2); CARBON DIOXIDE 29 mmol/L (22-29); CHLORIDE 104 mmol/L (98-107); CREATININE, SERUM 0.59 mg/dL (0.57-1.11); EST GLOMERULAR FILTRATION RATE > 60 ML/MIN (60-); GLUCOSE 142 mg/dL (74-118); POTASSIUM 3.8 mmol/L (3.5-5.1); SODIUM 140 mmol/L (136-145)
[2020-12-02] MEDS: METHYLPREDNISOLONE SOD SUCC 40 MG/ML VIAL 1ML IV SCH ×2 (07:41→20:42)
[2020-12-02] MEDS: DILTIAZEM HCL ER 120 MG CAP PO SCH (07:41)
[2020-12-02] MEDS: GABAPENTIN 100 MG CAP PO SCH ×3 (07:41→20:43)
[2020-12-02] MEDS: LOSARTAN POTASSIUM 25 MG TAB PO SCH (07:41)
[2020-12-02] MEDS: ATORVASTATIN 10 MG TAB PO SCH (20:43)
[2020-12-03] VITALS (9 sets, daily range): BP systolic 105–132; BP diastolic 49–68
[2020-12-03] MEDS: PIPER-TAZ 3.375 GM 50 ML IV SCH ×4 (03:30→20:45)
[2020-12-03] MEDS: GABAPENTIN 100 MG CAP PO SCH ×3 (09:14→21:08)
[2020-12-03] MEDS: LOSARTAN POTASSIUM 25 MG TAB PO SCH (09:15)
[2020-12-03] MEDS: DILTIAZEM HCL ER 120 MG CAP PO SCH (12:39)
[2020-12-03] MEDS: ATORVASTATIN 10 MG TAB PO SCH (21:08)
[2020-12-03] MEDS: DEXAMETHASONE 4 MG TAB PO SCH (23:39)
[2020-12-04] VITALS (8 sets, daily range): BP systolic 96–121; BP diastolic 46–79
[2020-12-04] MEDS: PIPER-TAZ 3.375 GM 50 ML IV SCH ×4 (02:50→20:17)
[2020-12-04] MEDS: DEXAMETHASONE 4 MG TAB PO SCH ×3 (05:46→16:49)
[2020-12-04] MEDS: GABAPENTIN 100 MG CAP PO SCH ×3 (09:14→20:17)
[2020-12-04] MEDS: DILTIAZEM HCL ER 120 MG CAP PO SCH (09:14)
[2020-12-04] MEDS: LOSARTAN POTASSIUM 25 MG TAB PO SCH (09:14)
[2020-12-04] MEDS: ENOXAPARIN SOD INJ 40 MG/0.4 ML SYR SC SCH (16:49)
[2020-12-04] MEDS: ATORVASTATIN 10 MG TAB PO SCH (20:17)
[2020-12-05] VITALS (7 sets, daily range): BP systolic 92–124; BP diastolic 47–64
[2020-12-05] MEDS: PIPER-TAZ 3.375 GM 50 ML IV SCH ×4 (02:14→22:27)
[2020-12-05] MEDS: DILTIAZEM HCL ER 120 MG CAP PO SCH (09:15)
[2020-12-05] MEDS: GABAPENTIN 100 MG CAP PO SCH ×3 (09:15→20:43)
[2020-12-05] MEDS: LOSARTAN POTASSIUM 25 MG TAB PO SCH (09:15)
[2020-12-05] MEDS: ENOXAPARIN SOD INJ 40 MG/0.4 ML SYR SC SCH (18:26)
[2020-12-05] MEDS: ATORVASTATIN 10 MG TAB PO SCH (20:43)
[2020-12-06] VITALS (8 sets, daily range): BP systolic 95–134; BP diastolic 48–67
[2020-12-06] MEDS: PIPER-TAZ 3.375 GM 50 ML IV SCH ×4 (03:48→20:48)
[2020-12-06] MEDS: DILTIAZEM HCL ER 120 MG CAP PO SCH (09:16)
[2020-12-06] MEDS: LOSARTAN POTASSIUM 25 MG TAB PO SCH (09:17)
[2020-12-06] MEDS: GABAPENTIN 100 MG CAP PO SCH ×3 (09:17→20:48)
[2020-12-06] MEDS: ENOXAPARIN SOD INJ 40 MG/0.4 ML SYR SC SCH (17:01)
[2020-12-06] MEDS: ATORVASTATIN 10 MG TAB PO SCH (20:48)
[2020-12-07] VITALS (10 sets, daily range): BP systolic 77–120; BP diastolic 43–64
[2020-12-07] MEDS: PIPER-TAZ 3.375 GM 50 ML IV SCH ×4 (02:49→20:40)
[2020-12-07] MEDS: GABAPENTIN 100 MG CAP PO SCH ×3 (08:42→20:40)
[2020-12-07] MEDS: LOSARTAN POTASSIUM 25 MG TAB PO SCH (09:00)
[2020-12-07] MEDS: DILTIAZEM HCL ER 120 MG CAP PO SCH (09:00)
[2020-12-07] MEDS: ENOXAPARIN SOD INJ 40 MG/0.4 ML SYR SC SCH (16:21)
[2020-12-07] MEDS: ATORVASTATIN 10 MG TAB PO SCH (20:40)
== END 2020-12-08 00:02 | DRG 177 ==
LOC: ER 19:41 → ERHOLD 21:09 → IMCU 21:31
PROVIDERS: ADMIT Family Medicine; ATTEND Family Medicine
PROC: 8E0ZXY6 Isolation (ICD-10-PCS; principal; 2020-11-24)
PROC: 02HV33Z Insertion of Infusion Device into Superior Vena Cava, Percutaneous Approach (ICD-10-PCS; 2020-11-25)
DX: U07.1 COVID-19 (principal); J12.82 Pneumonia due to coronavirus disease 2019; J96.01 Acute respiratory failure with hypoxia; E44.0 Moderate protein-calorie malnutrition; I10 Essential (primary) hypertension; D72.829 Elevated white blood cell count, unspecified; Z68.32 Body mass index [BMI] 32.0-32.9, adult; R73.9 Hyperglycemia, unspecified; T38.0X5A Adverse effect of glucocorticoids and synthetic analogues, initial encounter; E66.9 Obesity, unspecified; F41.9 Anxiety disorder, unspecified
CPT/HCPCS: 36415; 36569; 71045; 71260; 80048; 80053; 82550; 82553; 84484; 85025; 85610; 85730; 99284; J0456; J0696; J1100; J1650; J2543; J2920; J7050; Q9967; U0002

== ENCOUNTER → 2022-03-19 | Day surgery (SDC) | payer MEDICARE ==
[2022-03-17 09:10] LABS: BASOPHILS % 0.5 % (0.0-1.0); EOSINOPHILS # (AUTO) 0.1 (0.0-0.4); EOSINOPHILS % 1.9 % (0.0-6.0); HEMATOCRIT 40.4 % (34.2-44.1); HEMOGLOBIN 13.2 g/dL (12.0-16.0); LYMPHOCYTES # (AUTO) 2.2 (1.0-3.2); LYMPHOCYTES % 29.2 % (18.0-39.1); MEAN CORPUSCULAR HEMOGLOBIN 31.1 pg (28-32); MEAN CORPUSCULAR HGB CONC 32.7 g/dL (31-35); MEAN CORPUSCULAR VOLUME 95.1 fL (81-99); MONOCYTES # (AUTO) 0.6 (0.2-0.8); MONOCYTES % 7.4 % (4.4-11.3); NEUTROPHILS # (AUTO) 4.6 (2.1-6.9); NEUTROPHILS % 60.7 % (38.7-80.0); PLATELET COUNT 209 x10e3/uL (140-360); RED BLOOD COUNT 4.25 x10e6/uL (3.6-5.1); RED CELL DISTRIBUTION WIDTH 12.6 % (11.7-14.4)
[~2022-03-19] MED LIST changes: +CALCIUM500 MG PO; +FENTANYL CITRATE/PF 100MCG/2 ML INJ ONE; +HYOSCYAMINE SULFATE 0.5 MG/ML INJ ONE; +LIDOCAINE HCL 2% LOCAL INJ 5 ML SDV VIAL INJ ONE; +MIDAZOLAM HCL 2 MG/2 ML VIAL ONE; +PROPOFOL IV EMULSION 10 MG/ML 20 ML VIAL ONE; +ZINC PO
[2022-03-19 11:52] VITALS: BP 121/83
[2022-03-19 13:14] LABS: WBC,FECAL (FECAL LACTOFERRIN) NEGATIVE (NEGATIVE)
[2022-03-19 15:02] LABS: C DIFFICILE TOXIN A&B AMP PROB NEGATIVE (NEGATIVE)
== END | disposition home or self-care (01) ==
LOC: OR 08:29
PROVIDERS: ATTEND Internal Medicine Gastroenterology
DX: K52.9 Noninfective gastroenteritis and colitis, unspecified (principal); K63.5 Polyp of colon; K57.30 Diverticulosis of large intestine without perforation or abscess without bleeding; K62.89 Other specified diseases of anus and rectum; K64.8 Other hemorrhoids; I10 Essential (primary) hypertension; E78.00 Pure hypercholesterolemia, unspecified; G62.9 Polyneuropathy, unspecified; Z88.1 Allergy status to other antibiotic agents; Z88.8 Allergy status to other drugs, medicaments and biological substances; Z01.810 Encounter for preprocedural cardiovascular examination; Z01.812 Encounter for preprocedural laboratory examination; Z20.822 Contact with and (suspected) exposure to COVID-19; Z79.899 Other long term (current) drug therapy; Z68.31 Body mass index [BMI] 31.0-31.9, adult; Z86.16 Personal history of COVID-19; Z80.0 Family history of malignant neoplasm of digestive organs
CPT/HCPCS: 36415; 45380; 83630; 83993; 85025; 87045; 87177; 87328; 87493; 93005; J1980; J2001; J2250; J2704; J3010; U0002; 45378

== ENCOUNTER 2024-12-13 07:21 | Emergency (ER) | payer MEDICARE ==
[~2024-12-13] VITALS: Ht 157.5 cm; Wt 82.1 kg
[~2024-12-13 07:21] MED LIST changes: -FENTANYL CITRATE/PF 100MCG/2 ML INJ ONE; -HYOSCYAMINE SULFATE 0.5 MG/ML INJ ONE; -LIDOCAINE HCL 2% LOCAL INJ 5 ML SDV VIAL INJ ONE; -MIDAZOLAM HCL 2 MG/2 ML VIAL ONE; -PROPOFOL IV EMULSION 10 MG/ML 20 ML VIAL ONE
[2024-12-13 08:51] VITALS: PULSE 86; RESP 18; TEMP 97.6; O2SAT 99
== END 2024-12-13 08:50 | disposition home or self-care (01) ==
LOC: ER 07:39
DX: R05.9 Cough, unspecified (principal); J06.9 Acute upper respiratory infection, unspecified; I10 Essential (primary) hypertension; E78.5 Hyperlipidemia, unspecified; G62.9 Polyneuropathy, unspecified
CPT/HCPCS: 71046; 99283

== ENCOUNTER → 2025-04-25 | Outpatient (REF) | payer MEDICARE | LOC: US 11:01 | PROVIDERS: ATTEND Family Medicine | DX: R10.11 Right upper quadrant pain (principal) | CPT/HCPCS: 76705 ==